=== PATIENT | female | born 1960 | race African-American/Black ===

== ENCOUNTER → 2017-02-27 | Day surgery (SDC) | payer MEDICARE ==
[~2017-02-27] VITALS: Ht 170.2 cm; Wt 109.5 kg
[~2017-02-27] MED LIST: ABRE10CR TOPICAL; ACETAMINOPHEN/HYDROcodone 325 MG/5 MG TAB ONE; CHLORHEXIDINE GLUCONATE 2 % 1 PACK (2 CLOTHS) TOPICAL PRN; CHLORHEXIDINE GLUCONATE 4% SOLN 120 ML BTL TOPICAL ONE; CIPR250T52 PO; CIPROFLOXACIN 400 MG PREMIX 200 ML ONE; CIPROFLOXACIN/DEXT 400 MG/200 ML IV PRN; CYCL1TAB29 PO; FLUT1SPR5 EACH NARE; INSULIN HUMAN REGULAR 1,000 UNITS/10 ML VIAL SQ PRN; LACTATED RINGER'S 1000 ML INJ 1,000 ML ONE; LACTATED RINGER'S 1000 ML IV PRN; LIDOCAINE HCL 2% 50 ML VIAL INFIL ONE; METOPROLOL TARTRATE 25 MG TAB PO PRN; MIDAZOLAM HCL 2 MG/2 ML VIAL ONE; NEOMYCIN/POLYMYXIN 1 ML G.U. IRRIGANT ONE; NORC5TAB PO; OXYC1CAP PO; PROPOFOL 200 MG/20 ML AMP IV ONE; SODIUM CHLORID 0.9% 500 ML IV PRN; [UNRECOGNIZED DRUG - REMARK] PO
[2017-02-27] MEDS: BUPIVACAINE HCL PF 0.5% 30 ML VIAL ONE (10:29)
--- NOTE | 2017-02-27 11:26 | MP ---
cc: MANDEEP MCNAIR III, M.D. DATE OF SURGERY: 02/27/2017 PREOPERATIVE DIAGNOSIS Right thumb trigger finger. PROCEDURE PERFORMED Right thumb A1 rayray release. SURGEON Mandeep Mcnair III, MD PROCEDURE The patient was brought to the operating room and placed supine on the operating table. After the correct site and side of surgery were verified by members of each team in the room multiple times including the patient, myself and after adequate preoperative markings, preoperative written consent were verified by everyone and after adequate preop time-out was performed to everyone's satisfaction, after adequate IV sedation had been achieved, the right upper extremity was prepped and draped in traditional sterile surgical fashion. A 50/50 mixture of 2% plain lidocaine, 0.5% plain Marcaine was infiltrated in the skin and subcutaneous tissue at the base of the thumb. The limb was exsanguinated, Joseph wrap, highly placed well-padded axillary tourniquet was inflated to 200 mmHg for 10 minutes. A transversely oriented incision within the flexion crease MCP joint was made and carried down through skin and subcutaneous tissue. Any neurovascular structures were retracted out of the way and the A1 rayray was identified and found to be very redundant and thickened. It was divided in its entirety from its proximal most to its distal-most extents. The flexor pollicis longus tendon was then examined and found to be slightly abraded, was completely intact and otherwise non-compromised. Exploration proximally did not reveal any other crossing bands of tissue. Full passive range of motion was possible at this time. A liters worth of saline irrigation was used and the skin edges were reapproximated with 4-0 Nylon suture in running fashion. The hand and arm were thoroughly cleansed and dried. Adaptic dressing was applied followed by a bulky soft dressing. The axillary tourniquet was released. The hand and all the fingers on the right including the thumb became immediately soft, pink, warm and had brisk capillary refill of less than 2 seconds. Bulky soft dressing was applied in the usual fashion. The patient was awakened from anesthesia and transported to the Post Anesthesia Care Unit awake and in stable condition at the end of the case. Sponge, needle, instrument counts were correct at the end of the case as reported by nurses in the room. MD LEYLA Kuhn III 11:01 AM /11:08 AM
[2017-02-27 11:48] VITALS: BP 134/71; PULSE 64; RESP 16; TEMP 96.9; O2SAT 100
--- NOTE | 2017-02-28 14:46 | EKG ---
Date Performed: 02/27/2017 Time Performed: 09:58:54 PTAGE: 57 years EKG: Sinus rhythm NONSPECIFIC T-WAVE ABNORMALITY BORDERLINE ECG NO PREVIOUS TRACING DOCTOR: Saima Rincon Interpretating Date/Time 02/28/2017 14:44:19
== END | disposition home or self-care (01) ==
LOC: PHSDC 08:33
PROVIDERS: ATTEND Orthopaedic Surgery Hand Surgery
DX: M65.311 Trigger thumb, right thumb (principal); R94.31 Abnormal electrocardiogram [ECG] [EKG]
CPT/HCPCS: 01810; 26055; 93005; J0744; J2250; J3010; J7120